=== PATIENT | male | born 1965 | race African-American/Black ===

== ENCOUNTER → 2017-11-06 | Outpatient (CLI) | payer MEDICAID ==
[~2017-11-06] VITALS: Ht 182.9 cm; Wt 103.4 kg
[~2017-11-06] MED LIST: ASPIR 8181 MG; ATORVASTATIN CA40 MG; CLONIDINE0.1; COUMADIN 2.5MG2.5 M1; COUMADIN 3 MG TA3 M1; COZAAR 50 MG TA50 M2; CYMBALTA20 MG; FENOFIBRATE160 MG; FLOMAX0.4 MG; FLUVIRIN TRANSDERM; LASIX 40 MG TAB40 M2; LATUDA80 MG; LEVEMIR; LIDODERM1 EACH; LOPRESSOR50; NITROGLYCERIN0.4 MG; NORCO 5-325 TA1 EACH; NORPRAMIN25 MG; NORVASC10 MG PO; NOVOLOG100 UNIT/1; PEPCID20 MG; SYMBICORT80 MCG/4.1; TRAZODONE HCL50 MG; VALIUM5 MG; VENTOLIN HFA 1818 GM INH; VITAMIN D31000 UNIT
[2017-11-06 11:09] VITALS: BP 147/73
[2017-11-06 11:10] LABS: HEMATOCRIT 39.6 % (42.0-52.0); HEMOGLOBIN 13.5 gm/dL (14.0-18.0); MCH 31.4 pg (26.0-34.0); MCV 92.2 fL (80.0-100.0); MPV 8.3 fl. (7.2-11.1); RBC 4.3 mil/uL (4.50-6.00); RDW-CV 13.5 % (10.5-14.5); WBC 4.2 thou/uL (4.0-11.0)
[2017-11-06 11:20] LABS: APTT 28.5 Seconds (25.0-31.3); INR 1.1; PROTIME 10.9 Seconds (9.20-11.50)
[2017-11-06 11:21] LABS: ANION GAP 10 mmol/L (7-16); BUN 52 mg/dL (7-18); CALCIUM 8.2 mg/dL (8.5-10.1); CHLORIDE 108 mmol/L (98-107); CO2 21 mmol/L (21-32); CREATININE 5.3 mg/dL (0.6-1.3); GLUCOSE 123 mg/dL (70-99); SODIUM 139 mmol/L (136-145)
[2017-11-06 11:22] LABS: POTASSIUM 6.5 mmol/L (3.5-5.1)
[2017-11-06 11:26] LABS: ALBUMIN 2.9 g/dL (3.4-5.0); ALKALINE PHOSPHATASE 90 U/L (46-116); CHOLESTEROL 375 mg/dL (<200); HDL CHOLESTEROL 70 mg/dL (>40); LDL CHOLESTEROL 281 mg/dL (<100); SGOT 16 U/L (15-37); SGPT 19 U/L (30-65); TC:HDL 5.4 Ratio (Not establshd); TOTAL BILIRUBIN 0.3 mg/dL (<0.1-1.0); TOTAL PROTEIN 7.4 g/dL (6.4-8.2); TRIGLYCERIDE 124 mg/dL (<150); VLDL 25 mg/dL (<40)
[2017-11-06 11:28] LABS: SERUM ASSESSMENT Clear
[2017-11-06 12:14] VITALS: BP 137/76
[2017-11-06 13:08] VITALS: BP 133/75
[2017-11-06 13:29] VITALS: BP 137/82
[2017-11-06 14:04] VITALS: BP 139/80
[2017-11-06 15:08] LABS: CALCIUM 8.2 mg/dL (8.5-10.1); CREATININE 5.6 mg/dL (0.6-1.3)
[2017-11-06 15:09] LABS: POTASSIUM 4.9 mmol/L (3.5-5.1)
[2017-11-06 15:21] VITALS: BP 143/78
== END | disposition home or self-care (01) ==
LOC: M.CL 09:51
PROVIDERS: Internal Medicine Cardiovascular Disease
DX: R07.9 Chest pain, unspecified (principal); Z53.8 Procedure and treatment not carried out for other reasons; I12.9 Hypertensive chronic kidney disease with stage 1 through stage 4 chronic kidney disease, or unspecified chronic kidney disease; N18.9 Chronic kidney disease, unspecified; E11.9 Type 2 diabetes mellitus without complications; E78.00 Pure hypercholesterolemia, unspecified; G47.33 Obstructive sleep apnea (adult) (pediatric); J45.909 Unspecified asthma, uncomplicated; Z98.890 Other specified postprocedural states